=== PATIENT | female | born 1940 | race Caucasian/White ===

== ENCOUNTER → 2017-12-07 | Outpatient (CLI) | payer MEDICARE, OTHER ==
[~2017-12-07] MED LIST: ASPI81CH PO; BISA5EC PO; CALCA500CH; CARI350 PO; DILT30; DILT60 PO; Flovent Diskus50 MCG; HYDACE5 PO; IRBHYD150; IRBHYD150 PO; METCAR750; Ventolin Soln3 ML; WARF10 PO
== END ==
LOC: LAB SHORT 15:54 → PLD 15:54
DX: D48.5 Neoplasm of uncertain behavior of skin (principal)
CPT/HCPCS: 88305

== ENCOUNTER 2021-01-02 22:00 | Emergency (ER) | payer MEDICARE, OTHER ==
[~2021-01-02] VITALS: Ht 162.6 cm; Wt 73.9 kg
[2021-01-02] MEDS ORDERED: SERT50 PO (22:46)
[2021-01-02] MEDS ORDERED: TROSPIUM CHLORI60 MG PO (22:46)
[2021-01-02] MEDS ORDERED: LEVFLO500 PO (22:47)
[2021-01-02 22:58] LABS: BASOPHILS ABSOLUTE AUTO 0.04 K/mm3 (0.00-0.23); BASOPHILS PERCENT AUTO 1 % (0-2); EOSINOPHILS ABSOLUTE AUTO 0.42 K/mm3 (0.00-0.68); EOSINOPHILS PERCENT AUTO 5 % (0-6); Hematocrit 42.9 % (33.0-51.0); Hemoglobin 14.5 g/dL (11.5-16.0); IMMATURE GRAN ABSOLUTE AUTO 0.03 K/mm3 (0.00-0.10); IMMATURE GRAN PERCENT AUTO 0 % (0-1); LYMPHOCYTES ABSOLUTE AUTO 1.99 K/mm3 (0.84-5.20); LYMPHOCYTES PERCENT AUTO 24 % (21-46); MONOCYTES ABSOLUTE AUTO 0.64 K/mm3 (0.16-1.47); MONOCYTES PERCENT AUTO 8 % (4-13); Mean Corpuscular HGB 30.1 pg (26.0-34.0); Mean Corpuscular HGB Conc 33.8 g/dL (31.5-36.5); Mean Corpuscular Volume 89 fL (80-100); Mean Platelet Volume 10.4 fL (9.1-12.4); NEUTROPHILS ABSOLUTE AUTO 5.27 K/mm3 (1.96-9.15); NEUTROPHILS PERCENT AUTO 63 % (41-73); Platelet Count 213 K/mm3 (150-400); RDW Standard Deviation 42.4 fL (35.1-46.3); Red Blood Cell Count 4.82 M/mm3 (3.80-5.20); White Blood Cell Count 8.39 K/mm3 (4.00-11.30)
[2021-01-02 23:19] LABS: Alanine Aminotransfer (ALT/SGP 25 U/L (12-78); Albumin, Blood 3.6 g/dL (3.4-5.0); Albumin/Globulin Ratio 0.9 (0.8-1.8); Alk Phos 80 U/L (50-136); Anion Gap 9 mmol/L (6-16); Aspartate Aminotrans (AST/SGOT 24 U/L (12-37); Bilirubin, Total 0.4 mg/dL (0.1-1.0); Blood Urea Nitrogen 14 mg/dL (8-24); Bun/Creatinine Ratio 17.2 (12.0-20.0); CO2, Blood 24 mmol/L (21-32); Calcium, Blood 9.5 mg/dL (8.5-10.1); Chloride, Blood 107 mmol/L (98-108); Creatinine, Blood 0.81 mg/dL (0.40-1.00); Globulin, Blood 3.8 g/dL (2.2-4.0); Glomerular Filtration Rate >60 (60-); Glucose, Blood 103 mg/dL (70-99); Magnesium, Blood 2.2 mg/dL (1.6-2.4); Potassium, Blood 3.3 mmol/L (3.5-5.5); Sodium, Blood 140 mmol/L (136-145); Total Protein, Blood 7.4 g/dL (6.4-8.2); Troponin I <0.015 ng/mL (0.000-0.040)
[2021-01-02 23:35] LABS: Influenza A, PCR NEGATIVE (NEGATIVE); Influenza B, PCR NEGATIVE (NEGATIVE); Resp Syncytial Virus, PCR NEGATIVE (NEGATIVE); SARS-Cov-2 (COVID-19) PCR, MMC NEGATIVE (NEGATIVE)
[2021-01-02 23:51] LABS: Source, Urine Clean Catch
[2021-01-03 00:01] LABS: Appearance, Urine Clear (Clear); Bilirubin, Urine Neg (Neg); Blood, Urine Neg (Neg); Color, Urine Yellow (P-Yellow); Glucose Qualitative, Urine Neg (Neg); Ketones, Urine Neg (Neg); Leukocyte Esterase, Urine 1+ (Neg); Nitrite, Urine Neg (Neg); Protein, Urine Neg (Neg); Urobilinogen, Urine NORM (Normal)
[2021-01-03 00:21] LABS: Bacteria Rare /hpf; Red Blood Cells, Urine Not Seen /hpf (0-2); Squamous Epithelial Cells Few /hpf (Few); White Blood Cells, Urine Rare /hpf (0-5)
[2021-01-03] MEDS ORDERED: Prednisone50 MG PO (00:35)
== END 2021-01-03 00:45 | disposition home or self-care (01) ==
LOC: ER 22:00
PROVIDERS: Emergency Medicine
DX: J98.01 Acute bronchospasm (principal); I10 Essential (primary) hypertension; Z88.2 Allergy status to sulfonamides; Z88.6 Allergy status to analgesic agent; Z79.899 Other long term (current) drug therapy
CPT/HCPCS: 0241U; 36415; 71045; 80053; 81001; 83690; 83735; 83880; 84484; 85025; 87086; 93005; 93010; 94644; 99284-25; A9270; J7512

== ENCOUNTER 2021-01-26 11:00 | Emergency (ER) | payer MEDICARE, OTHER ==
[~2021-01-26] VITALS: Ht 160 cm; Wt 72.6 kg
[~2021-01-26 11:00] MED LIST changes: +LEVFLO500 PO; +Prednisone50 MG PO; +SERT50 PO; +TROSPIUM CHLORI60 MG PO
[2021-01-26 11:43] LABS: BASOPHILS ABSOLUTE AUTO 0.03 K/mm3 (0.00-0.23); BASOPHILS PERCENT AUTO 0 % (0-2); EOSINOPHILS ABSOLUTE AUTO 0.28 K/mm3 (0.00-0.68); EOSINOPHILS PERCENT AUTO 3 % (0-6); Hematocrit 42.7 % (33.0-51.0); Hemoglobin 14.1 g/dL (11.5-16.0); IMMATURE GRAN ABSOLUTE AUTO 0.03 K/mm3 (0.00-0.10); IMMATURE GRAN PERCENT AUTO 0 % (0-1); LYMPHOCYTES ABSOLUTE AUTO 0.95 K/mm3 (0.84-5.20); LYMPHOCYTES PERCENT AUTO 11 % (21-46); MONOCYTES ABSOLUTE AUTO 0.45 K/mm3 (0.16-1.47); MONOCYTES PERCENT AUTO 5 % (4-13); Mean Corpuscular HGB 29.6 pg (26.0-34.0); Mean Corpuscular Volume 90 fL (80-100); Mean Platelet Volume 10.2 fL (9.1-12.4); NEUTROPHILS ABSOLUTE AUTO 7.04 K/mm3 (1.96-9.15); NEUTROPHILS PERCENT AUTO 80 % (41-73); Platelet Count 218 K/mm3 (150-400); RDW Coefficient Variation 12.9 % (11.7-14.2); RDW Standard Deviation 42.5 fL (35.1-46.3); Red Blood Cell Count 4.76 M/mm3 (3.80-5.20); White Blood Cell Count 8.78 K/mm3 (4.00-11.30)
[2021-01-26 11:50] LABS: Alanine Aminotransfer (ALT/SGP 24 U/L (12-78); Albumin, Blood 3.4 g/dL (3.4-5.0); Albumin/Globulin Ratio 0.9 (0.8-1.8); Alk Phos 71 U/L (50-136); Anion Gap 8 mmol/L (6-16); Aspartate Aminotrans (AST/SGOT 26 U/L (12-37); Bilirubin, Total 0.4 mg/dL (0.1-1.0); Blood Urea Nitrogen 12 mg/dL (8-24); Bun/Creatinine Ratio 15.2 (12.0-20.0); CO2, Blood 24 mmol/L (21-32); Calcium, Blood 9.2 mg/dL (8.5-10.1); Chloride, Blood 108 mmol/L (98-108); Creatinine, Blood 0.79 mg/dL (0.40-1.00); Globulin, Blood 3.8 g/dL (2.2-4.0); Glomerular Filtration Rate >60 (60-); Glucose, Blood 126 mg/dL (70-99); Potassium, Blood 3.4 mmol/L (3.5-5.5); Sodium, Blood 140 mmol/L (136-145); Total Protein, Blood 7.2 g/dL (6.4-8.2)
[2021-01-26] MEDS ORDERED: Prednisone50 MG PO (14:21)
[2021-01-26] MEDS ORDERED: ALBU90OI INH (14:21)
== END 2021-01-26 14:46 | disposition home or self-care (01) ==
LOC: ER 11:00
PROVIDERS: Emergency Medicine
DX: J40 Bronchitis, not specified as acute or chronic (principal); I10 Essential (primary) hypertension; Z88.2 Allergy status to sulfonamides; Z88.5 Allergy status to narcotic agent; Z88.6 Allergy status to analgesic agent; Z79.899 Other long term (current) drug therapy
CPT/HCPCS: 36415; 71045; 80053; 83690; 84484; 85025; 93005; 93010; 94640; 99284-25; A9270; J7512

== ENCOUNTER 2022-05-11 14:20 | Emergency (ER) | payer MEDICARE, OTHER ==
[~2022-05-11] VITALS: Ht 162.6 cm; Wt 77.1 kg
[~2022-05-11 14:20] MED LIST changes: +ALBU90OI INH
== END 2022-05-11 16:33 | disposition home or self-care (01) ==
LOC: ER 14:20
DX: S00.93XA Contusion of unspecified part of head, initial encounter (principal); M25.512 Pain in left shoulder; W18.30XA Fall on same level, unspecified, initial encounter; I10 Essential (primary) hypertension; Z88.2 Allergy status to sulfonamides; Z88.6 Allergy status to analgesic agent; Z88.8 Allergy status to other drugs, medicaments and biological substances; Z79.899 Other long term (current) drug therapy
CPT/HCPCS: 70450; 72125; 73060; A9270

== ENCOUNTER 2022-05-29 02:22 | Emergency (ER) | payer MEDICARE, OTHER ==
[~2022-05-29] VITALS: Ht 162.6 cm; Wt 72.1 kg
[2022-05-29 02:55] LABS: BASOPHILS ABSOLUTE AUTO 0.04 K/mm3 (0.00-0.23); BASOPHILS PERCENT AUTO 0 % (0-2); EOSINOPHILS ABSOLUTE AUTO 0.23 K/mm3 (0.00-0.68); EOSINOPHILS PERCENT AUTO 2 % (0-6); Hematocrit 40.7 % (33.0-51.0); Hemoglobin 13.6 g/dL (11.5-16.0); IMMATURE GRAN ABSOLUTE AUTO 0.03 K/mm3 (0.00-0.10); IMMATURE GRAN PERCENT AUTO 0 % (0-1); LYMPHOCYTES ABSOLUTE AUTO 1.73 K/mm3 (0.84-5.20); LYMPHOCYTES PERCENT AUTO 18 % (21-46); MONOCYTES ABSOLUTE AUTO 0.73 K/mm3 (0.16-1.47); MONOCYTES PERCENT AUTO 8 % (4-13); Mean Corpuscular HGB 29.4 pg (26.0-34.0); Mean Corpuscular HGB Conc 33.4 g/dL (31.5-36.5); Mean Corpuscular Volume 88 fL (80-100); NEUTROPHILS ABSOLUTE AUTO 6.71 K/mm3 (1.96-9.15); NEUTROPHILS PERCENT AUTO 71 % (41-73); Platelet Count 199 K/mm3 (150-400); RDW Coefficient Variation 12.8 % (11.7-14.2); RDW Standard Deviation 41.1 fL (35.1-46.3); Red Blood Cell Count 4.63 M/mm3 (3.80-5.20); White Blood Cell Count 9.47 K/mm3 (4.00-11.30)
[2022-05-29] MEDS ORDERED: ACET325 PO (03:04)
[2022-05-29] MEDS ORDERED: IRBE150 (03:07)
[2022-05-29] MEDS ORDERED: LOPE2C (03:09)
[2022-05-29] MEDS ORDERED: DIAPER RASH113 G1 (03:11)
[2022-05-29 03:15] LABS: Albumin, Blood 3.5 g/dL (3.4-5.0); Albumin/Globulin Ratio 1.2 (0.8-1.8); Bilirubin, Total 0.3 mg/dL (0.1-1.0); Bun/Creatinine Ratio 16.2 (12.0-20.0); Calcium, Blood 9.4 mg/dL (8.5-10.1); Creatinine, Blood 0.74 mg/dL (0.40-1.00); Potassium, Blood 3.1 mmol/L (3.5-5.5); Total Protein, Blood 6.5 g/dL (6.4-8.2)
== END 2022-05-29 10:00 | disposition home or self-care (01) ==
LOC: ER 02:22
PROVIDERS: Student in an Organized Health Care Education/Training Program
DX: R20.2 Paresthesia of skin (principal); F03.90 Unspecified dementia, unspecified severity, without behavioral disturbance, psychotic disturbance, mood disturbance, and anxiety; I10 Essential (primary) hypertension; Z91.19 Patient's noncompliance with other medical treatment and regimen; Z79.52 Long term (current) use of systemic steroids; Z88.2 Allergy status to sulfonamides; Z88.8 Allergy status to other drugs, medicaments and biological substances; Z79.899 Other long term (current) drug therapy
CPT/HCPCS: 36415; 70450; 71045; 80053; 84484; 85025; 93005; 93010; A9270; J3475

== ENCOUNTER 2022-11-17 20:33 | Emergency (ER) | payer MEDICARE, OTHER ==
[~2022-11-17] VITALS: Ht 162.6 cm; Wt 68.0 kg
[~2022-11-17 20:33] MED LIST changes: +ACET325 PO; +DIAPER RASH113 G1; +IRBE150; +LOPE2C
== END 2022-11-17 23:43 | disposition home or self-care (01) ==
LOC: ER 20:33
DX: U07.1 COVID-19 (principal); I10 Essential (primary) hypertension; Z79.52 Long term (current) use of systemic steroids; Z79.899 Other long term (current) drug therapy; Z88.2 Allergy status to sulfonamides; Z88.6 Allergy status to analgesic agent; Z88.8 Allergy status to other drugs, medicaments and biological substances
CPT/HCPCS: 71046

== ENCOUNTER 2022-11-20 05:18 | Emergency (ER) | payer MEDICARE, OTHER ==
[~2022-11-20] VITALS: Ht 160 cm; Wt 45.8 kg
[~2022-11-20 05:18] MED LIST changes: -DILT30; +DILT30 PO
== END 2022-11-20 10:43 | disposition home or self-care (01) ==
LOC: ER 05:18
DX: U07.1 COVID-19 (principal); I10 Essential (primary) hypertension; Z88.2 Allergy status to sulfonamides; Z88.8 Allergy status to other drugs, medicaments and biological substances; Z79.52 Long term (current) use of systemic steroids
CPT/HCPCS: 99284

== ENCOUNTER 2022-11-24 15:05 | Inpatient (IN) | payer MEDICARE, OTHER ==
[~2022-11-24] VITALS: Ht 162.6 cm; Wt 70.6 kg
[2022-11-24] MEDS ORDERED: HYDR1TAB94 PO (15:48)
[2022-11-24] MEDS ORDERED: IRBESARTAN-HCT1 EAC3 PO (15:49)
[2022-11-24 15:57] LABS: Hematocrit 43.3 % (33.0-51.0); Hemoglobin 14.4 g/dL (11.5-16.0); Mean Corpuscular HGB 28.3 pg (26.0-34.0); Mean Corpuscular HGB Conc 33.3 g/dL (31.5-36.5); Mean Corpuscular Volume 85 fL (80-100); Platelet Count 372 K/mm3 (150-400); RDW Standard Deviation 44.1 fL (35.1-46.3); Red Blood Cell Count 5.08 M/mm3 (3.80-5.20); White Blood Cell Count 17.38 K/mm3 (4.00-11.30)
[2022-11-24 16:12] LABS: Albumin, Blood 2.5 g/dL (3.4-5.0); Albumin/Globulin Ratio 0.5 (0.8-1.8); Bilirubin, Total 0.6 mg/dL (0.1-1.0); Bun/Creatinine Ratio 54.1 (12.0-20.0); Calcium, Blood 9.8 mg/dL (8.5-10.1); Creatinine, Blood 0.67 mg/dL (0.40-1.00); Globulin, Blood 5.2 g/dL (2.2-4.0); Potassium, Blood 3.1 mmol/L (3.5-5.5); Total Protein, Blood 7.7 g/dL (6.4-8.2)
[2022-11-24 16:20] LABS: BAND PERCENT MAN 2 % (0-8); BASOPHILS PERCENT MAN 0 % (0-2); EOSINOPHILS PERCENT MAN 0 % (0-6); LYMPHOCYTES % ATYPICAL MANUAL 1 % (0-0); LYMPHOCYTES ABSOLUTE MAN 1.56 K/mm3 (0.84-5.20); LYMPHOCYTES PERCENT MAN 8 % (21-46); METAMYELOCYTE ABSOLUTE MAN 0.86 K/mm3 (0.00-0.00); METAMYELOCYTE PERCENT MAN 5 % (0-0); MONOCYTES ABSOLUTE MAN 1.39 K/mm3 (0.16-1.47); MONOCYTES PERCENT MAN 8 % (4-13); MYELOCYTE ABSOLUTE MAN 0.17 K/mm3 (0.00-0.00); MYELOCYTE PERCENT MAN 1 % (0-0); NEUTROPHILS ABSOLUTE MAN 13.38 K/mm3 (1.96-9.15); SEG NEUTROPHILS PERCENT MAN 75 % (41-73); TOTAL CELLS COUNTED 100
[2022-11-25 04:52] LABS: Hematocrit 36.3 % (33.0-51.0); Hemoglobin 12.2 g/dL (11.5-16.0); Mean Corpuscular HGB 28.4 pg (26.0-34.0); Mean Corpuscular HGB Conc 33.6 g/dL (31.5-36.5); Mean Corpuscular Volume 85 fL (80-100); Mean Platelet Volume 9.7 fL (9.1-12.4); Platelet Count 256 K/mm3 (150-400); RDW Coefficient Variation 13.9 % (11.7-14.2); RDW Standard Deviation 42.8 fL (35.1-46.3); Red Blood Cell Count 4.29 M/mm3 (3.80-5.20); White Blood Cell Count 14.93 K/mm3 (4.00-11.30)
[2022-11-25 05:22] LABS: Magnesium, Blood 2.3 mg/dL (1.6-2.4)
[2022-11-25 05:23] LABS: Bun/Creatinine Ratio 45.6 (12.0-20.0); Calcium, Blood 8.9 mg/dL (8.5-10.1); Creatinine, Blood 0.64 mg/dL (0.40-1.00); Potassium, Blood 2.7 mmol/L (3.5-5.5)
[2022-11-25 05:43] LABS: BAND PERCENT MAN 6 % (0-8); BASOPHILS PERCENT MAN 0 % (0-2); EOSINOPHILS ABSOLUTE MAN 0.29 K/mm3 (0.00-0.68); EOSINOPHILS PERCENT MAN 2 % (0-6); LYMPHOCYTES % ATYPICAL MANUAL 1 % (0-0); LYMPHOCYTES ABSOLUTE MAN 1.79 K/mm3 (0.84-5.20); LYMPHOCYTES PERCENT MAN 11 % (21-46); METAMYELOCYTE ABSOLUTE MAN 0.29 K/mm3 (0.00-0.00); METAMYELOCYTE PERCENT MAN 2 % (0-0); MONOCYTES ABSOLUTE MAN 0.74 K/mm3 (0.16-1.47); MONOCYTES PERCENT MAN 5 % (4-13); MYELOCYTE ABSOLUTE MAN 0.74 K/mm3 (0.00-0.00); MYELOCYTE PERCENT MAN 5 % (0-0); NEUTROPHILS ABSOLUTE MAN 11.04 K/mm3 (1.96-9.15); SEG NEUTROPHILS PERCENT MAN 68 % (41-73); TOTAL CELLS COUNTED 100
--- NOTE | 2022-11-25 06:35 | NUR ---
Admitted during shift and arrived to unit with daughter at 2009. She is alert and oriented to self, disoriented to place, time and situation. Daughter states she is usually confused in the evening d/t dementia. Lung sounds rhonchi, not able to spit out secreations. 2L oxygen nasal canular to maintain sats >92%. Medicated with Flynn at bedtime for chronic back pain. Bed alarm on, 2 episodes of attempts to get out of bed. Will continue to monitor pt
[2022-11-25 12:53] LABS: Influenza A, PCR NEGATIVE (NEGATIVE); Influenza B, PCR NEGATIVE (NEGATIVE); Resp Syncytial Virus, PCR NEGATIVE (NEGATIVE)
[2022-11-25 12:55] LABS: SARS-Cov-2 (COVID-19) PCR, MMC POSITIVE (NEGATIVE)
--- NOTE | 2022-11-25 17:51 | NUR ---
SHIFT SUMMARY PATIENT DENIES PAIN, NAUSEA, AND SHORTNESS OF BREATH. PATIENT IS A&O 1-2. MOSTLY JUST TO SELF AND FAMILY. PATIENT HAS BED ALARM ON, CONSISTENTLY TRIES TO GET OUT OF BED. PATIENT ON 2L VIA N/C. PATIENT CONSISTENTLY TAKES O2 OFF. NEEDS MULTIPLE REDIRECTION THROUGHOUT SHIFT. PATIENT TESTED POSITIVE FOR COVID THIS SHIFT, DR. HILL NOTIFIED. PATIENT IN ISOLATION. DAUGHTER AT BEDSIDE MOST OF SHIFT. PATIENT IS EATING AND DRINKING WELL. BEDSIDE SWALLOW DONE THIS AM, NO SIGNS OF ASPIRATION WITH ALL TRIALS. PATIENT IS VERY PLEASANT AND COOPERATIVE WITH CARE.
--- NOTE | 2022-11-25 21:07 | NUR ---
PATIENT HAVING INCREASED CONFUSION REPORTING SHE WANTS TO GET OOB TO GO INTO A CAR. PULLED HER OXYGEN OFF MULTIPLE TIMES AMD MULTIPLE OOB ATTMEPTS. BED ALARM ACTIVATED. WCTM.
--- NOTE | 2022-11-25 23:08 | NUR ---
HOSPITALIST DR AGUIRRE ORDERED RESTRAINTS: JULIO C, BILATERAL SOFT WRIST, AND FOUR RAILS. PATIENT HAVING INCREASED CONFUSION WITH OOB ATTEMPTS REPORTING SHE NEEDS TO GET UP INTO A CAR. PULLING OXYGEN OFF. BED ALARM, JOSEPH.
--- NOTE | 2022-11-26 04:27 | NUR ---
SHIFT SUMMARY PATIENT CONFUSED T/O SHIFT. ALERT TO SELF AND NOT REDIRECTABLE AT THIS TIME. IMPULSIVE. RESTRAINTS PER ORDER. ON 2L O2 NC. BEDREST. PIV REMAINS INTACT. VSS/AFEBRILE. NO S/SX OF PAIN, SOB, AND N/V. ENHANCED PRECAUTIONS COVID-19+. CALL LIGHT IN REACH. BED IN LOWEST POSITION AND ALARM ACTIVATED. WILL CONTINUE TO MONITOR UNTIL DAY SHIFT NURSE ASSUMES CARE.
[2022-11-26 04:52] LABS: Hematocrit 38.5 % (33.0-51.0); Hemoglobin 12.9 g/dL (11.5-16.0); Mean Corpuscular HGB 28.5 pg (26.0-34.0); Mean Corpuscular HGB Conc 33.5 g/dL (31.5-36.5); Mean Corpuscular Volume 85 fL (80-100); Mean Platelet Volume 9.7 fL (9.1-12.4); Platelet Count 273 K/mm3 (150-400); RDW Coefficient Variation 13.7 % (11.7-14.2); RDW Standard Deviation 42.8 fL (35.1-46.3); Red Blood Cell Count 4.53 M/mm3 (3.80-5.20); White Blood Cell Count 10.62 K/mm3 (4.00-11.30)
[2022-11-26 05:27] LABS: Magnesium, Blood 2.4 mg/dL (1.6-2.4)
[2022-11-26 05:28] LABS: Anion Gap 8 mmol/L (6-16); Blood Urea Nitrogen 21 mg/dL (8-24); Bun/Creatinine Ratio 32.1 (12.0-20.0); CO2, Blood 26 mmol/L (21-32); Calcium, Blood 9.1 mg/dL (8.5-10.1); Chloride, Blood 110 mmol/L (98-108); Creatinine, Blood 0.66 mg/dL (0.40-1.00); Glomerular Filtration Rate 86 (60-); Glucose, Blood 159 mg/dL (70-99); Phosphorus, Blood 4.1 mg/dL (2.5-4.9); Potassium, Blood 3.7 mmol/L (3.5-5.5); Sodium, Blood 144 mmol/L (136-145)
[2022-11-26 06:04] LABS: BAND PERCENT MAN 2 % (0-8); BASOPHILS PERCENT MAN 0 % (0-2); EOSINOPHILS PERCENT MAN 0 % (0-6); LYMPHOCYTES ABSOLUTE MAN 0.21 K/mm3 (0.84-5.20); LYMPHOCYTES PERCENT MAN 2 % (21-46); METAMYELOCYTE ABSOLUTE MAN 0.53 K/mm3 (0.00-0.00); METAMYELOCYTE PERCENT MAN 5 % (0-0); MONOCYTES PERCENT MAN 1 % (4-13); MYELOCYTE ABSOLUTE MAN 0.31 K/mm3 (0.00-0.00); MYELOCYTE PERCENT MAN 3 % (0-0); NEUTROPHILS ABSOLUTE MAN 9.45 K/mm3 (1.96-9.15); SEG NEUTROPHILS PERCENT MAN 87 % (41-73); TOTAL CELLS COUNTED 100
--- NOTE | 2022-11-26 16:59 | NUR ---
SHIFT SUMMARY/TRANSFER PATIENT DENIES PAIN, NAUSEA, AND SHORTNESS OF BREATH. PATIENT ON 3L VIA N/C, SATURATING ABOVE 95%. PATIENT A&O TO SELF, BUT PLEASANT AND REDIRECTABLE. PATIENT NEEDS MULTIPLE REMINDERS AND CUEING FOR TASKS. PATIENT DAUGHTER AT BEDSIDE MOST OF SHIFT. PATIENT HAD INCREASED AGITATION THIS AFTERNOON, UNABLE TO REDIRECT. DR. HILL CALLED, NEW ORDER FOR JULIO C AND RAILS X4. DAUGHTER INFORMED AND EDUCATED, AGREEABLE TO PLAN. PATIENT TAKEN FOR PE STUDY THIS MORNING. PATIENT IS EATING AND DRINKING WELL. PATIENT BEING MOVED TO ROOM 349 FOR SAFETY. REPORT GIVEN TO CAROLYN ECHEVERRIA. BELONGINGS SENT WITH PATIENT. DAUGHTER INFORMED OF MOVE. PATIENT IS PLEASANT AND COOPERATIVE WITH CARE.
--- NOTE | 2022-11-26 17:25 | NUR ---
TRANSFER NOTE- PT ARRIVED VIA BED FROM MEDICAL FLOOR. PT WAS TRANSFERED TO ROOM 349 FOR SAFETY OBSERVATION. PT IS ON 2 L NC WITH DYSPNEA AT REST. BREATH SOUNDS ARE COURSE IN UPPER AND LOWER LUNGS. S1 AND S2 HEARD ON AUSCULTATION. PT WAS ORIENTED TO THE ROOM AND NURSE. FAMILY IS AT BEDSIDE.
--- NOTE | 2022-11-26 18:49 | NUR ---
SHIFT SUMMARY- PT IS ALERT AND ORIENTED TO SELF. PT IS IN A JULIO C VEST AND EATING DINNER IN BED. THE BED IS IN THE LOWEST POSITION WITH THE ALARM ON. CALL LIGHT IS IN REACH.
--- NOTE | 2022-11-27 04:23 | NUR ---
SHIFT SUMMARY ADMITTED FOR RESPIRATORY FAILURE/PNEUMONIA. DNR CODE. ENHANCED PRECAUTIONS FOR COVID+. ON 2 LPM O2, RA @ BASELINE. IN NON-VIOLENT RESTRAINTS DUE TO CONFUSION AND IMPULSIVENESS. FREQUENTLY ATTEMPTS TO EXIT BED. SUNDOWNS AT [facility]. ON STEROIDS, ANTIB RX, AND REMDESIVIR. ON CONTINUOUS PULSE OX. ON XARELTO. CAN BE REDIRECTED.
[2022-11-27 05:50] LABS: Hematocrit 34.4 % (33.0-51.0); Hemoglobin 11.9 g/dL (11.5-16.0); Mean Corpuscular HGB 28.9 pg (26.0-34.0); Mean Corpuscular HGB Conc 34.6 g/dL (31.5-36.5); Mean Corpuscular Volume 84 fL (80-100); Mean Platelet Volume 10.2 fL (9.1-12.4); Platelet Count 274 K/mm3 (150-400); RDW Coefficient Variation 13.6 % (11.7-14.2); RDW Standard Deviation 41.5 fL (35.1-46.3); Red Blood Cell Count 4.12 M/mm3 (3.80-5.20); White Blood Cell Count 19.74 K/mm3 (4.00-11.30)
[2022-11-27 06:13] LABS: Bun/Creatinine Ratio 31.8 (12.0-20.0); Calcium, Blood 8.8 mg/dL (8.5-10.1); Creatinine, Blood 0.63 mg/dL (0.40-1.00); Potassium, Blood 3.3 mmol/L (3.5-5.5)
--- NOTE | 2022-11-27 16:05 | NUR ---
SHIFT SUMMARY PT AWAKE AT START OF SHIFT, LYING FOWLERS WATCHING TV. PT IS VERY CONFUSED AND DISORIENTED. PER REPORT, PT ON 1L O2 VIA NC. PT'S BIOX 97% ON RA. PT NOT LEAVING O2 ON OR CONTINOUS BIOX PROBE. RT IN TO SEE PT AND REPORTED PT DID NOT NEED O2 WITH SAT'S @ 97% ON RA. DR DAWN NOTIFIED TO D/C CONTINOUS BIOX PT ON RA AND WOULD NOT LEAVE ON EITHER. BED BATH GIVEN THIS AM AND PT ASSISTED TO CHAIR AT BS. PT REMAINED IN CHAIR UNTIL AFTER LUNCH, WANTING TO GO BACK TO BED. PT'S DAUGHTER HERE AFTER LUNCH WELL. PT KNOWS DAUGHTER, BUT OTHERWISE REMAINS CONFUSED AND DISORIENTED. CHANGED FOR INCONTINENCE THRU OUT THE DAY. TOO CONFUSED TO GO TO BSC AND WILL NOT VOID ON BSC. PT REPOSITIONED OFF BUTTOCKS. CALAZIME CREAM APPLIED SEVERAL TIMES TO VERNA AREA REDNESS. DAUGHTER REPORTED REDNESS FROM [facility]CONT[facility] AT [facility]FORE COM[facility]. BED ALARM ON FOR SAFETY. CALL LT IN REACH.
--- NOTE | 2022-11-28 05:40 | NUR ---
Patient resting in bed at this time.
[2022-11-28 08:41] LABS: Hematocrit 36.4 % (33.0-51.0); Hemoglobin 12.6 g/dL (11.5-16.0); Mean Corpuscular HGB 28.8 pg (26.0-34.0); Mean Corpuscular HGB Conc 34.6 g/dL (31.5-36.5); Mean Corpuscular Volume 83 fL (80-100); Mean Platelet Volume 9.9 fL (9.1-12.4); Platelet Count 254 K/mm3 (150-400); RDW Coefficient Variation 13.5 % (11.7-14.2); Red Blood Cell Count 4.38 M/mm3 (3.80-5.20); White Blood Cell Count 16.74 K/mm3 (4.00-11.30)
[2022-11-28 08:56] LABS: Bun/Creatinine Ratio 31.9 (12.0-20.0); Calcium, Blood 8.5 mg/dL (8.5-10.1); Creatinine, Blood 0.6 mg/dL (0.40-1.00); Potassium, Blood 3.4 mmol/L (3.5-5.5)
[2022-11-28 09:11] LABS: BASOPHILS PERCENT MAN 0 % (0-2); EOSINOPHILS PERCENT MAN 0 % (0-6); LYMPHOCYTES PERCENT MAN 9 % (21-46); MONOCYTES ABSOLUTE MAN 0.16 K/mm3 (0.16-1.47); MONOCYTES PERCENT MAN 1 % (4-13); NEUTROPHILS ABSOLUTE MAN 15.06 K/mm3 (1.96-9.15); SEG NEUTROPHILS PERCENT MAN 90 % (41-73); TOTAL CELLS COUNTED 100
--- NOTE | 2022-11-28 14:20 | NUR ---
SHIFT SUMMARY PT RESTING QUIETLY AT START OF SHIFT. WOKE EASILY FOR CARE AND ASSISTED UP TO CHAIR FOR BREAKFAST. PT REPORTED THAT SHE WAS STILL TIRED AND NEEDED TO SLEEP LONGER. PT WENT BACK TO BED AFTER BREAKFAST AND SLEPT FOR A WHILE AND FELT BETTER WHEN SHE WOKE UP. PT THEN WANTING TO GET UP TO CHAIR AT BS. PT REMAINED IN CHAIR UNTIL AFTER LUNCH THIS AFTERNOON. PT NOT EATING MUCH AT ALL. SHE REPORTS EACH MEAL THAT SHE LIKES COOKIES AND ICE CREAM. MAGIC CUP ORDERED FOR LUNCH; PT EATING ALL OF IT. PT'S FAMILY IN TO SEE HER AT THIS TIME. PT REMAINS INCONTINENT OF URINE. ANAL AND VERNA AREA REMAIN RED AND EXCORIATED, BUT SLIGHTLY IMPROVED FROM YESTERDAY; CALAZIME LOTION APPLIED WITH EACH INCONTINENCE. PT HAS BEEN PLEASANT AND CO-OP. BED AND CHAIR ALARM ON FOR SAFETY. CALL LT IN REACH.
--- NOTE | 2022-11-29 05:03 | NUR ---
SHIFT SUMMARY PT A&O X 3, PT CONFUSED AT TIMES, PT TOOK SCHEDULED MEDICATIONS WITHOUT PROBLEMS- PT REQUESTED BREATHING TREATMENT AT BEGINNING OF SHIFT- PT REPORTED BREATHING EASIER AFTER TREATMENT- PT C/O OF BACK AND BODY ACHES- GAVE NORCO PER PRN ORDER-PT INCREASED CONFUSION T/O NIGHT- PT USED CALL LIGHT APPROPRIATE AT TIMES, BED LOW POSTION, CALL LIGHT IN REACH, BED ALARM IN PLACE
[2022-11-29] MEDS ORDERED: FAMO20 PO (15:16)
[2022-11-29] MEDS ORDERED: DECADRON6 M1 PO (15:16)
[2022-11-29] MEDS ORDERED: VISBIOME 112.51 EACH PO (15:17)
[2022-11-29] MEDS ORDERED: GUAI600T33 PO (15:17)
--- NOTE | 2022-11-29 15:42 | NUR ---
REPORT CALLED TO [facility] ON 11/29/22 AT 4027
--- NOTE | 2022-11-29 16:22 | NUR ---
PATIENT DIS[facility] TO [facility] IS TRANSPORTING THE PATIENT. PATIENT'S DAUGHTER HELPED THE PATIENT GET DRESSED AND READY FOR DISCHARGE. IV DISCONTINUED
== END 2022-11-29 16:18 | disposition home or self-care (01) | DRG 871 ==
LOC: ER 15:05 → MEDS 17:23
PROVIDERS: Internal Medicine; Student in an Organized Health Care Education/Training Program; ADMIT Student in an Organized Health Care Education/Training Program
PROC: 3E0DX3Z Introduction of Anti-inflammatory into Mouth and Pharynx, External Approach (ICD-10-PCS; principal; 2022-11-25)
PROC: XW033E5 Introduction of Remdesivir Anti-infective into Peripheral Vein, Percutaneous Approach, New Technology Group 5 (ICD-10-PCS; 2022-11-25)
PROC: 8E0ZXY6 Isolation (ICD-10-PCS; 2022-11-25)
PROC: 3E03329 Introduction of Other Anti-infective into Peripheral Vein, Percutaneous Approach (ICD-10-PCS; 2022-11-25)
DX: A41.89 Other specified sepsis (principal); G93.41 Metabolic encephalopathy; J12.82 Pneumonia due to coronavirus disease 2019; U07.1 COVID-19; J96.01 Acute respiratory failure with hypoxia; G93.1 Anoxic brain damage, not elsewhere classified; F03.90 Unspecified dementia, unspecified severity, without behavioral disturbance, psychotic disturbance, mood disturbance, and anxiety; I10 Essential (primary) hypertension; E87.6 Hypokalemia; Z66 Do not resuscitate; M54.9 Dorsalgia, unspecified; G89.29 Other chronic pain; M19.90 Unspecified osteoarthritis, unspecified site; Z88.2 Allergy status to sulfonamides; Z88.8 Allergy status to other drugs, medicaments and biological substances; Z88.1 Allergy status to other antibiotic agents; Z79.899 Other long term (current) drug therapy; Z79.891 Long term (current) use of opiate analgesic; Z79.2 Long term (current) use of antibiotics; Z79.51 Long term (current) use of inhaled steroids; Z79.52 Long term (current) use of systemic steroids; Z98.890 Other specified postprocedural states; Z90.49 Acquired absence of other specified parts of digestive tract; Z90.710 Acquired absence of both cervix and uterus
CPT/HCPCS: 0241U; 36415; 71045; 71260; 80048; 80053; 80069; 83605; 83735; 84145; 85025; 85027; 85379; 87040; 93005; 93010; 94640; 94664; 94760; 94762; 96365; 96372; 96375; 96376; 97110; 97116; 97162; 99285-25; A9270; G0378; J0248; J0456; J0696; J1650; J3480; J7030; J7050; Q9967

== ENCOUNTER → 2023-04-07 | Outpatient (CLI) | payer MEDICARE, OTHER ==
[~2023-04-07] MED LIST changes: +DECADRON6 M1 PO; +FAMO20 PO; +GUAI600T33 PO; +HYDR1TAB94 PO; +IRBESARTAN-HCT1 EAC3 PO; +VISBIOME 112.51 EACH PO
[2023-04-07 17:36] LABS: Source, Urine Voided
[2023-04-07 18:26] LABS: Appearance, Urine Hazy (Clear); Bilirubin, Urine Neg (Neg); Blood, Urine Neg (Neg); Color, Urine Yellow (P-Yellow); Glucose Qualitative, Urine Neg (Neg); Ketones, Urine Neg (Neg); Leukocyte Esterase, Urine 2+ (Neg); Nitrite, Urine Neg (Neg); Protein, Urine Neg (Neg); Specific Gravity, Urine 1.015 (1.003-1.022); Urobilinogen, Urine NORM (Normal)
[2023-04-07 18:49] LABS: Bacteria Many /hpf; Red Blood Cells, Urine 0-2 /hpf (0-2); Squamous Epithelial Cells Few /hpf (Few); White Blood Cells, Urine 25-50 /hpf (0-5)
== END | disposition home or self-care (01) ==
LOC: LAB 17:33 → LAB SHORT 17:33
PROVIDERS: Legal Medicine
DX: N39.0 Urinary tract infection, site not specified (principal)
CPT/HCPCS: 81001; 87077; 87086; 87186

== ENCOUNTER 2023-04-16 19:16 | Inpatient (IN) | payer MEDICARE, OTHER ==
[~2023-04-16] VITALS: Ht 157.5 cm; Wt 69.1 kg
[~2023-04-16 19:16] MED LIST changes: +ALBU2.5V5 INH; -Flovent Diskus50 MCG; +Flovent Diskus50 MCG INH; -Ventolin Soln3 ML
[2023-04-16 19:49] LABS: BASOPHILS ABSOLUTE AUTO 0.03 K/mm3 (0.00-0.23); BASOPHILS PERCENT AUTO 0 % (0-2); EOSINOPHILS ABSOLUTE AUTO 0.27 K/mm3 (0.00-0.68); EOSINOPHILS PERCENT AUTO 4 % (0-6); Hematocrit 42.5 % (33.0-51.0); Hemoglobin 13.9 g/dL (11.5-16.0); IMMATURE GRAN ABSOLUTE AUTO 0.02 K/mm3 (0.00-0.10); IMMATURE GRAN PERCENT AUTO 0 % (0-1); LYMPHOCYTES ABSOLUTE AUTO 1.61 K/mm3 (0.84-5.20); LYMPHOCYTES PERCENT AUTO 21 % (21-46); MONOCYTES ABSOLUTE AUTO 0.57 K/mm3 (0.16-1.47); MONOCYTES PERCENT AUTO 8 % (4-13); Mean Corpuscular HGB 27.6 pg (26.0-34.0); Mean Corpuscular HGB Conc 32.7 g/dL (31.5-36.5); Mean Corpuscular Volume 84 fL (80-100); Mean Platelet Volume 9.9 fL (9.1-12.4); NEUTROPHILS ABSOLUTE AUTO 5.07 K/mm3 (1.96-9.15); NEUTROPHILS PERCENT AUTO 67 % (41-73); Platelet Count 220 K/mm3 (150-400); RDW Coefficient Variation 14.5 % (11.7-14.2); RDW Standard Deviation 44.4 fL (35.1-46.3); Red Blood Cell Count 5.04 M/mm3 (3.80-5.20); White Blood Cell Count 7.57 K/mm3 (4.00-11.30)
[2023-04-16 20:06] LABS: Magnesium, Blood 2.2 mg/dL (1.6-2.4)
[2023-04-16 20:10] LABS: Albumin, Blood 3.4 g/dL (3.4-5.0); Albumin/Globulin Ratio 0.9 (0.8-1.8); Bilirubin, Total 0.3 mg/dL (0.1-1.0); Bun/Creatinine Ratio 19.3 (12.0-20.0); Calcium, Blood 9.2 mg/dL (8.5-10.1); Creatinine, Blood 0.83 mg/dL (0.40-1.00); Globulin, Blood 3.6 g/dL (2.2-4.0); Thyroid Stimulating Hormone 0.718 uIU/mL (0.360-4.800)
[2023-04-16 23:45] VITALS: BP 203/111
[2023-04-17 01:28] VITALS: BP 168/90
--- NOTE | 2023-04-17 01:52 | NUR ---
ADMIT NOTE HANDOFF RECEIVED FROM REMOTE SENSING PROGRAM MANAGER VIVIAN. PT ARRIVED TO FLOOR VIA GURNEY. PT ORIENTED TO UNIT. FIRST BAG OF IV POTASSIUM INFUSING. PT'S WET CLOTHING AND ATTENDS CHANGED. PT VOMITED. ORDERS RECEIVED FOR NAUSEA MEDS. PAIN MEDICATION GIVEN.
--- NOTE | 2023-04-17 04:40 | NUR ---
SHIFT SUMMARY PT ADMIT WITH C1 CERVICAL FRACTURE AFTER FALL AT HOME. ON ADMIT, PT WAS A&OX4. BECAME CONFUSED TO LOCATION AND SITUATION. THIS REINFORCER EXPLAINED LOCATION AND SITUATION TO PT. CERVICAL COLLAR CHANGED BY 2 RN TEAM. PT HAS HALLUCINATIONS AND DELUSIONS THAT SHE "NEEDS TO HELP THE PEOPLE UP ON THE [place]". PT ON BEDREST. CONTINENT/INCONTINENT. OKAY WITH USING BEDPAN, BUT WANTS TO USE COMMODE AFTER CONSULT WITH PT/OT. PT HAS BOUTS OF NAUSEA AFTER REPOSITIONING MOVEMENTS. VOMITED X1. PT'S DAUGHTER STATES SHE HAS CURRENT UTI. RECEIVED PAIN MEDICATION X1. PT'S BP UPON ADMIT WAS 203/111. AFTER MEDICATION, WAS BROUGHT DOWN TO 168/90.
[2023-04-17 05:40] LABS: BASOPHILS ABSOLUTE AUTO 0.02 K/mm3 (0.00-0.23); BASOPHILS PERCENT AUTO 0 % (0-2); EOSINOPHILS ABSOLUTE AUTO 0.05 K/mm3 (0.00-0.68); EOSINOPHILS PERCENT AUTO 1 % (0-6); Hematocrit 43.1 % (33.0-51.0); Hemoglobin 14.2 g/dL (11.5-16.0); IMMATURE GRAN ABSOLUTE AUTO 0.03 K/mm3 (0.00-0.10); IMMATURE GRAN PERCENT AUTO 0 % (0-1); LYMPHOCYTES PERCENT AUTO 14 % (21-46); MONOCYTES ABSOLUTE AUTO 0.42 K/mm3 (0.16-1.47); MONOCYTES PERCENT AUTO 5 % (4-13); Mean Corpuscular HGB 27.6 pg (26.0-34.0); Mean Corpuscular HGB Conc 32.9 g/dL (31.5-36.5); Mean Corpuscular Volume 84 fL (80-100); Mean Platelet Volume 9.7 fL (9.1-12.4); NEUTROPHILS ABSOLUTE AUTO 7.38 K/mm3 (1.96-9.15); NEUTROPHILS PERCENT AUTO 80 % (41-73); Platelet Count 211 K/mm3 (150-400); RDW Coefficient Variation 14.6 % (11.7-14.2); RDW Standard Deviation 43.9 fL (35.1-46.3); Red Blood Cell Count 5.15 M/mm3 (3.80-5.20)
[2023-04-17 06:18] LABS: Albumin, Blood 3.3 g/dL (3.4-5.0); Bilirubin, Total 0.5 mg/dL (0.1-1.0); Bun/Creatinine Ratio 18.2 (12.0-20.0); Calcium, Blood 9.2 mg/dL (8.5-10.1); Creatinine, Blood 0.6 mg/dL (0.40-1.00); Globulin, Blood 3.2 g/dL (2.2-4.0); Potassium, Blood 3.3 mmol/L (3.5-5.5); Total Protein, Blood 6.5 g/dL (6.4-8.2)
[2023-04-17 07:33] VITALS: BP 157/94
--- NOTE | 2023-04-17 09:55 | NUR ---
NURSE NOTE THIS NURSE AGREES WITH STUDENT NURSE SHIFT ASSESSMENT
[2023-04-17 15:20] VITALS: BP 158/95
--- NOTE | 2023-04-17 17:37 | NUR ---
SHIFT SUMMARY: PT A&O TO SELF AND LARGELY IMMOBILE. C-COLLAR REMAINS IN PLACE AND PT IS VERY SENSITIVE TO REPOSITIONING ACTIVITIES. DAUGHTER AT BEDSIDE FOR LARGE PORTION OF MORNING AND AFTERNOON. PT ABLE TO TOLERATE PO MEDS ADMINISTERED SLOWLY, ONE AT A TIME FLOATED IN APPLE SAUCE. PT EATS SMALL AMOUNT OF BREAKFAST AND LUNCH TRAY <25%. PAIN MEDICATION ADMINISTERED AT 1215 WITH GOOD EFFECT. MRI QUESTIONAIRE COMPLETED AND SENT RADIOLOGY. PT PRE-MEDICATED WITH ATIVAN PRIOR TO MRI ORDERED.
--- NOTE | 2023-04-17 17:54 | NUR ---
NURSE NOTE THIS RN AGREES WITH THE MANAGER INTRANET SHIFT ASSESSMENT AND SHIFT SUMMARY
--- NOTE | 2023-04-17 18:44 | NUR ---
PT TO MRI AT 1844 WITH COMMERCIAL FLOOR COVERING INSTALLER
[2023-04-17 20:34] VITALS: BP 213/122
[2023-04-17 21:44] VITALS: BP 154/86
[2023-04-18 03:02] VITALS: BP 180/100
[2023-04-18 05:18] VITALS: BP 135/87
--- NOTE | 2023-04-18 05:21 | NUR ---
PATIENT IS ALERT AND ORIENTED TO SELF, SLEPT WELL THROUGH THE NIGHT. PAIN AND HTN TREATED PER MAR WITH GOOD RESULTS. INC, BEDREST, AND Q2 TURNS. RA, LUNG SOUNDS DIM. C COLLAR WORN THROUGHOUT THE NIGHT WITHOUT ISSUES. WILL CONT TO MONITOR.
[2023-04-18 07:21] VITALS: BP 167/104
--- NOTE | 2023-04-18 11:45 | NUR ---
NURSE NOTE THIS RN HAS REVIEWED AND AGREES WITH STUDENT NURSE ASSESSMENT AND DOCUMENTATION
[2023-04-18 15:22] VITALS: BP 184/100
--- NOTE | 2023-04-18 16:00 | NUR ---
SHIFT SUMMARY: PT RESTING IN BED THROUGHOUT SHIFT. DAUGHTER AT BEDSIDE FOR MAJORITY OF THE DAY. C-COLLAR IN PLACE. OT AT BEDSIDE TO EVALUATE ABILITY TO SIT UP UNDER HER OWN POWER. 4 PERSON STAFF ASSIST TO TRANSFER FROM LYING DOWN TO SITTING UP AT THE EDGE OF HER BED. PT UNABLE TO SUPPORT SELF INDEPENDENTLY. PAINFUL WITH REPOSITIONING TO THE HIGH BACK AND NECK MEDICATED WITH GOOD EFFECT PER EMAR. LEFT HAND APPEARS SWOLLEN AND IS PAINFUL WITH REPOSITIONING. PT EATING SMALL AMOUNTS WITH FULL ASSISTANCE. BLOOD PRESSURE ELEVATED IN AFTERNOON AND TREATED WITH PRN HYDRALAZINE 10MG IV WITH GOOD RESULTS.
[2023-04-18 16:08] VITALS: BP 146/89
[2023-04-18 20:39] VITALS: BP 165/102
[2023-04-19 05:47] LABS: Bun/Creatinine Ratio 21.7 (12.0-20.0); Calcium, Blood 9.1 mg/dL (8.5-10.1); Creatinine, Blood 0.69 mg/dL (0.40-1.00); Potassium, Blood 3.4 mmol/L (3.5-5.5)
[2023-04-19 06:35] VITALS: BP 175/86
--- NOTE | 2023-04-19 06:47 | NUR ---
NO CHANGES TO ORIENTATION, REMAINES X1 TO SELF AND FAMILY. DAUGHTER AT BEDSIDE. VERY PAINFUL THROUGHOUT THE SHIFT, GUARDING LUE, SOME L HAND SWELLING NOTED, AND ELEVATED. HTN, OTHERWISE VSS. NO N/V THIS SHIFT. Q2 TURNS. VERY LITTLE FLUID CONSUMED EVEN WITH HELP. 75 NS INFUSING. WILL CONT TO MONITOR.
[2023-04-19 08:01] VITALS: BP 186/94
[2023-04-19 16:53] VITALS: BP 173/89
[2023-04-19 20:04] VITALS: BP 176/92
[2023-04-20 04:13] VITALS: BP 177/87
--- NOTE | 2023-04-20 04:31 | NUR ---
SHIFT SUMMARY PT ADMIT FOR C1 CERVICAL FRACTURE. PT MUCH MORE ALERT TONIGHT THAN ON ADMIT. PUREWICK USED THROUGHOUT NIGHT SUCCESSFULLY. PT REQUESTED PAIN MEDS X1. SLEPT FOR THE REST OF SHIFT. LEFT ARM SLIGHTLY SWOLLEN AND SORE. BUE HOT TO TOUCH. NO FEVER NOTED WITH VITALS. PT PLANNING TO BE DISCHARGED TO [facility] TODAY. ATE WELL TONIGHT. DAUGHTER FED HER MIXED FRUIT CUP. PT HAD NO PROBLEMS CHEWING AND SWALLOWING. EDUCATED ON MAKING SURE HEAD OF BED WAS SITTING UPRIGHT FOR EATING.
--- NOTE | 2023-04-20 05:45 | NUR ---
CTA NOTE I HAVE READ THE LAY OUT MACHINE OPERATOR'S DOCUMENTATION AND I AGREE. SHIFT SUMMARY IS FOUND UNDER LAY OUT MACHINE OPERATOR NOTES
[2023-04-20 07:19] VITALS: BP 174/80
--- NOTE | 2023-04-20 15:16 | NUR ---
REPORT TO [facility] CALLED REPORT TO JOS AT [facility]. AWAITING GURNEY TRANSFER. CONTINUE POC.
[2023-04-20 16:01] VITALS: BP 190/106
--- NOTE | 2023-04-20 16:24 | NUR ---
BP BP EELVATED. IV OUT FOR DISCHARGE. DR HILL CALLED. ORDER FOR CLONIDINE RECEIVED. CLARIFIED CLONODINE ALLERGY WITH PT DAUGHTER. SHE DOES NOT KNOW OF ANY SUCH ALLERGY. CONMTINUE POC.
--- NOTE | 2023-04-20 16:42 | NUR ---
DISCHARGE TO [facility] TRANSPORT TEAM HERE. PACKET GIVEN TO EMS. PT TRANSFERED WITH 4 ASSIST TO [facility]. PT TOLERATED WELL. C COLLAR IN PLACE. CONTINUE POC.
[2023-04-20 16:43] VITALS: BP 180/90
== END 2023-04-20 16:45 | DRG 552 ==
LOC: ER 19:16 → MEDS 19:17 → ENPENDDIS 04-20 11:16 → MEDS 04-20 16:45
PROVIDERS: Internal Medicine; Student in an Organized Health Care Education/Training Program; ADMIT Internal Medicine
DX: S12.090A Other displaced fracture of first cervical vertebra, initial encounter for closed fracture (principal); S00.31XA Abrasion of nose, initial encounter; I10 Essential (primary) hypertension; E87.6 Hypokalemia; Z66 Do not resuscitate; G89.29 Other chronic pain; M19.90 Unspecified osteoarthritis, unspecified site; S00.83XA Contusion of other part of head, initial encounter; F41.9 Anxiety disorder, unspecified; F03.A0 Unspecified dementia, mild, without behavioral disturbance, psychotic disturbance, mood disturbance, and anxiety; W18.30XA Fall on same level, unspecified, initial encounter; M54.9 Dorsalgia, unspecified; Z88.2 Allergy status to sulfonamides; Z88.1 Allergy status to other antibiotic agents; Z88.8 Allergy status to other drugs, medicaments and biological substances; Z79.891 Long term (current) use of opiate analgesic; Z79.51 Long term (current) use of inhaled steroids; Z79.899 Other long term (current) drug therapy; Z90.2 Acquired absence of lung [part of]; Z90.710 Acquired absence of both cervix and uterus; Z90.49 Acquired absence of other specified parts of digestive tract; Z98.890 Other specified postprocedural states; Z87.440 Personal history of urinary (tract) infections
CPT/HCPCS: 36415; 70450; 70486; 72125; 72141; 73120; 73502; 80048; 80053; 83735; 84443; 85025; 90471; 90714; 93005; 93010; 96365; 96374; 96375; 96376; 97110; 97161; 97166; 97530; 99285-25; A9270; G0378; J0360; J2060; J2270; J2405; J3010; J3480; J7030

== ENCOUNTER → 2023-06-10 | Outpatient (CLI) | payer MEDICARE, OTHER ==
[2023-06-10 18:49] LABS: Source, Urine Clean Catch
[2023-06-10 19:50] LABS: Appearance, Urine Turbid (Clear); Bilirubin, Urine Neg (Neg); Blood, Urine Neg (Neg); Color, Urine Yellow (P-Yellow); Glucose Qualitative, Urine Neg (Neg); Ketones, Urine Neg (Neg); Leukocyte Esterase, Urine 3+ (Neg); Nitrite, Urine Neg (Neg); Protein, Urine 2+ (Neg); Specific Gravity, Urine 1.025 (1.003-1.022); Urobilinogen, Urine NORM (Normal)
[2023-06-10 20:04] LABS: Amorphous Heavy (0-Heavy); Bacteria Many /hpf; Calcium Oxalate Crystals Many /hpf; Red Blood Cells, Urine Not Seen /hpf (0-2); Squamous Epithelial Cells Few /hpf (Few)
== END ==
LOC: LAB SHORT 18:48 → LAB 18:48
PROVIDERS: Legal Medicine
DX: N39.0 Urinary tract infection, site not specified (principal)
CPT/HCPCS: 81001; 87077; 87086; 87186

== ENCOUNTER → 2023-06-21 | Outpatient (CLI) | payer MEDICARE, OTHER ==
[2023-06-22 11:33] LABS: Source, Urine Clean Catch
[2023-06-22 13:20] LABS: Appearance, Urine Cloudy (Clear); Bilirubin, Urine Neg (Neg); Blood, Urine Neg (Neg); Color, Urine Yellow (P-Yellow); Glucose Qualitative, Urine Neg (Neg); Ketones, Urine Neg (Neg); Leukocyte Esterase, Urine 2+ (Neg); Nitrite, Urine Neg (Neg); Protein, Urine 1+ (Neg); Urobilinogen, Urine NORM (Normal)
[2023-06-22 14:39] LABS: Amorphous Light (0-Heavy); Bacteria Many /hpf; Calcium Oxalate Crystals Many /hpf; Mucus Light (0-Heavy); Red Blood Cells, Urine 0-2 /hpf (0-2); Squamous Epithelial Cells Few /hpf (Few)
== END ==
LOC: LAB SHORT 21:00 → LAB 21:00
PROVIDERS: Legal Medicine
DX: N39.0 Urinary tract infection, site not specified (principal)
CPT/HCPCS: 81001; 87077; 87086; 87186

== ENCOUNTER → 2024-02-22 | Outpatient (CLI) | payer MEDICARE, OTHER ==
[2024-02-22 13:28] LABS: BASOPHILS ABSOLUTE AUTO 0.04 K/mm3 (0.00-0.23); BASOPHILS PERCENT AUTO 1 % (0-2); EOSINOPHILS ABSOLUTE AUTO 0.34 K/mm3 (0.00-0.68); EOSINOPHILS PERCENT AUTO 5 % (0-6); Hematocrit 42.7 % (33.0-51.0); Hemoglobin 13.7 g/dL (11.5-16.0); IMMATURE GRAN ABSOLUTE AUTO 0.03 K/mm3 (0.00-0.10); IMMATURE GRAN PERCENT AUTO 1 % (0-1); LYMPHOCYTES ABSOLUTE AUTO 1.15 K/mm3 (0.84-5.20); LYMPHOCYTES PERCENT AUTO 18 % (21-46); MONOCYTES ABSOLUTE AUTO 0.42 K/mm3 (0.16-1.47); MONOCYTES PERCENT AUTO 7 % (4-13); Mean Corpuscular HGB 27.7 pg (26.0-34.0); Mean Corpuscular HGB Conc 32.1 g/dL (31.5-36.5); Mean Corpuscular Volume 86 fL (80-100); NEUTROPHILS PERCENT AUTO 70 % (41-73); Platelet Count 187 K/mm3 (150-400); RDW Coefficient Variation 13.7 % (11.7-14.2); RDW Standard Deviation 43.4 fL (35.1-46.3); Red Blood Cell Count 4.94 M/mm3 (3.80-5.20); White Blood Cell Count 6.48 K/mm3 (4.00-11.30)
[2024-02-22 14:33] LABS: Albumin, Blood 3.3 g/dL (3.4-5.0); Bilirubin, Total 0.4 mg/dL (0.1-1.0); Bun/Creatinine Ratio 16.6 (12.0-20.0); Creatinine, Blood 0.79 mg/dL (0.40-1.00); Globulin, Blood 3.3 g/dL (2.2-4.0); Potassium, Blood 3.2 mmol/L (3.5-5.5); Thyroid Stimulating Hormone 0.95 uIU/mL (0.360-4.800); Total Protein, Blood 6.6 g/dL (6.4-8.2)
== END | disposition home or self-care (01) ==
LOC: LAB 10:38 → LAB SHORT 10:38
PROVIDERS: Internal Medicine
DX: I10 Essential (primary) hypertension (principal); E53.8 Deficiency of other specified B group vitamins; E55.9 Vitamin D deficiency, unspecified; R53.83 Other fatigue
CPT/HCPCS: 80053; 82306; 82607; 82746; 84443; 85025

== ENCOUNTER → 2024-06-04 | Outpatient (CLI) | payer MEDICARE, OTHER ==
[2024-06-04 17:35] LABS: Bun/Creatinine Ratio 14.2 (12.0-20.0); Calcium, Blood 9.7 mg/dL (8.5-10.1); Creatinine, Blood 0.92 mg/dL (0.40-1.00); Potassium, Blood 4.2 mmol/L (3.5-5.5)
== END ==
LOC: LAB 12:47 → LAB SHORT 12:47
PROVIDERS: Internal Medicine
DX: I10 Essential (primary) hypertension (principal)
CPT/HCPCS: 80048

== ENCOUNTER → 2024-10-11 | Outpatient (CLI) | payer MEDICARE, OTHER ==
[2024-10-11 17:51] LABS: BASOPHILS ABSOLUTE AUTO 0.04 K/mm3 (0.00-0.23); BASOPHILS PERCENT AUTO 1 % (0-2); EOSINOPHILS ABSOLUTE AUTO 0.25 K/mm3 (0.00-0.68); EOSINOPHILS PERCENT AUTO 4 % (0-6); Hematocrit 45.1 % (33.0-51.0); Hemoglobin 14.8 g/dL (11.5-16.0); IMMATURE GRAN ABSOLUTE AUTO 0.02 K/mm3 (0.00-0.10); IMMATURE GRAN PERCENT AUTO 0 % (0-1); LYMPHOCYTES ABSOLUTE AUTO 1.06 K/mm3 (0.84-5.20); LYMPHOCYTES PERCENT AUTO 17 % (21-46); MONOCYTES ABSOLUTE AUTO 0.47 K/mm3 (0.16-1.47); MONOCYTES PERCENT AUTO 7 % (4-13); Mean Corpuscular HGB 28.7 pg (26.0-34.0); Mean Corpuscular HGB Conc 32.8 g/dL (31.5-36.5); Mean Corpuscular Volume 87 fL (80-100); Mean Platelet Volume 11.1 fL (9.1-12.4); NEUTROPHILS ABSOLUTE AUTO 4.53 K/mm3 (1.96-9.15); NEUTROPHILS PERCENT AUTO 71 % (41-73); Platelet Count 154 K/mm3 (150-400); RDW Coefficient Variation 14.2 % (11.7-14.2); RDW Standard Deviation 46.1 fL (35.1-46.3); Red Blood Cell Count 5.16 M/mm3 (3.80-5.20); White Blood Cell Count 6.37 K/mm3 (4.00-11.30)
[2024-10-11 18:42] LABS: Albumin, Blood 3.4 g/dL (3.4-5.0); Bilirubin, Total 0.4 mg/dL (0.1-1.0); Bun/Creatinine Ratio 20.1 (12.0-20.0); Calcium, Blood 9.2 mg/dL (8.5-10.1); Creatinine, Blood 0.8 mg/dL (0.40-1.00); Globulin, Blood 3.5 g/dL (2.2-4.0); Total Protein, Blood 6.9 g/dL (6.4-8.2)
== END ==
LOC: LAB SHORT 16:40 → LAB 16:40
PROVIDERS: Internal Medicine
DX: I10 Essential (primary) hypertension (principal); E55.9 Vitamin D deficiency, unspecified
CPT/HCPCS: 80053; 82306; 85025

== ENCOUNTER → 2025-06-14 | Outpatient (CLI) | payer MEDICARE, OTHER ==
[2025-06-14 12:52] LABS: BASOPHILS ABSOLUTE AUTO 0.05 K/mm3 (0.00-0.23); BASOPHILS PERCENT AUTO 1 % (0-2); EOSINOPHILS ABSOLUTE AUTO 0.31 K/mm3 (0.00-0.68); EOSINOPHILS PERCENT AUTO 4 % (0-6); Hematocrit 47.3 % (33.0-51.0); Hemoglobin 15.0 g/dL (11.5-16.0); IMMATURE GRAN ABSOLUTE AUTO 0.03 K/mm3 (0.00-0.10); IMMATURE GRAN PERCENT AUTO 0 % (0-1); LYMPHOCYTES ABSOLUTE AUTO 1.07 K/mm3 (0.84-5.20); LYMPHOCYTES PERCENT AUTO 14 % (21-46); MONOCYTES ABSOLUTE AUTO 0.51 K/mm3 (0.16-1.47); MONOCYTES PERCENT AUTO 7 % (4-13); Mean Corpuscular HGB Conc 31.7 g/dL (31.5-36.5); Mean Corpuscular Volume 89 fL (80-100); NEUTROPHILS ABSOLUTE AUTO 5.54 K/mm3 (1.96-9.15); NEUTROPHILS PERCENT AUTO 74 % (41-73); NRBC ABSOLUTE 0.00 K/mm3 (0.00-0.02); NRBC Auto 0.0 /100 WBC (0.0-0.2); Platelet Count 169 K/mm3 (150-400); RDW Coefficient Variation 13.1 % (11.7-14.2); RDW Standard Deviation 42.9 fL (35.1-46.3)
[2025-06-14 14:29] LABS: Alanine Aminotransfer (ALT/SGP 28.0 U/L (12-78); Albumin, Blood 3.4 g/dL (3.4-5.0); Albumin/Globulin Ratio 0.9 (0.8-1.8); Anion Gap 8.0 mmol/L (3-11); Aspartate Aminotrans (AST/SGOT 32.0 U/L (12-37); Bilirubin, Total 0.4 mg/dL (0.1-1.0); Blood Urea Nitrogen 16.0 mg/dL (8-24); CO2, Blood 29.0 mmol/L (21-32); Calcium, Blood 9.1 mg/dL (8.5-10.1); Chloride, Blood 111.0 mmol/L (98-108); Creatinine, Blood 0.83 mg/dL (0.40-1.00); Globulin, Blood 3.7 g/dL (2.2-4.0); Glucose, Blood 112.0 mg/dL (70-99); Potassium, Blood 3.7 mmol/L (3.5-5.5); Sodium, Blood 144.0 mmol/L (136-145); Total Protein, Blood 7.1 g/dL (6.4-8.2)
== END | disposition home or self-care (01) ==
LOC: LAB 12:06 → LAB SHORT 12:06
PROVIDERS: Internal Medicine
DX: I10 Essential (primary) hypertension (principal); E55.9 Vitamin D deficiency, unspecified
CPT/HCPCS: 80053; 82306; 85025